=== PATIENT | female | born 1985 | race Caucasian/White ===

== ENCOUNTER 2017-09-22 18:36 | Outpatient (CLI) | payer MEDICAID | END 2017-09-22 23:21 | disposition home or self-care (01) | LOC: OBT 18:36 → L-D 18:39 → OBT 23:21 | DX: O36.8130 Decreased fetal movements, third trimester, not applicable or unspecified (principal); Z3A.34 34 weeks gestation of pregnancy | CPT/HCPCS: 76815; 76817; 76818 ==

== ENCOUNTER 2017-09-24 21:06 | Outpatient (CLI) | payer MEDICAID | END 2017-09-25 11:47 | disposition home or self-care (01) | LOC: OBT 21:06 → L-D 21:10 | DX: O09.293 Supervision of pregnancy with other poor reproductive or obstetric history, third trimester (principal); Z3A.27 27 weeks gestation of pregnancy | CPT/HCPCS: 76818 ==

== ENCOUNTER 2017-12-21 17:37 | Inpatient (IN) | payer MEDICAID ==
[2017-12-21 20:01] LABS: RUPTURE FETAL MEMBRANES POSITIVE (NEGATIVE)
[2017-12-21] MEDS ORDERED: LACTATED RINGER'S 1,000 ML IV (20:13)
[2017-12-21] MEDS ORDERED: BUTORPHANOL 2 MG INJ IV (20:30)
[2017-12-21] MEDS ORDERED: IBUPROFEN 600 MG TAB PO (20:30)
[2017-12-21] MEDS ORDERED: CARBOPROST 250 MCG INJ IM (20:30)
[2017-12-21] MEDS ORDERED: METHYLERGONOVINE 0.2 MG INJ IM (20:30)
[2017-12-21] MEDS ORDERED: OXYTOCIN 30 UNITS/LR 500 ML IV ×2 (20:30)
[2017-12-21] MEDS ORDERED: MISOPROSTOL 200 MCG TAB PR (20:30)
[2017-12-21] MEDS ORDERED: OXYCODONE/ACETAMINOPHEN (5/325) TAB PO (20:30)
[2017-12-21] MEDS ORDERED: LIDOCAINE 1% (MPF) 30 ML INJ INJ (20:30)
[2017-12-21] MEDS: LACTATED RINGER'S 1,000 ML IV* (22:49)
[2017-12-21 22:57] LABS: ADD MAN DIFF? NO
[2017-12-21 23:01] LABS: WHITE BLOOD COUNT 7.9 10^3/ul (4.8-10.8)
[2017-12-21 23:01] LABS: BASOPHILS % 0.3 % (0.0-2.0); EOSINOPHILS # 0.1 10^3/ul (0.0-0.5); EOSINOPHILS % 0.6 % (0.0-7.0); HEMATOCRIT 35.7 % (37.0-47.0); HEMOGLOBIN 12.4 g/dl (12.0-16.0); LYMPHOCYTES # 2.7 10^3/ul (0.8-2.9); LYMPHOCYTES % 33.5 % (15.0-51.0); MEAN CORPUSCULAR HEMOGLOBIN 33.9 pg (29.0-33.0); MEAN CORPUSCULAR HGB CONC 34.7 g/dl (32.0-37.0); MEAN CORPUSCULAR VOLUME 97.5 fl (82.0-101.0); MEAN PLATELET VOLUME 10.3 fl (7.4-10.4); MONOCYTE # 0.5 10^3/ul (0.3-0.9); MONOCYTES % 5.9 % (0.0-11.0); NEUTROPHIL # 4.7 10^3/ul (1.6-7.5); NEUTROPHILS % 58.9 % (39.0-77.0); PLATELET COUNT 258 10^3/UL (140-415); RED BLOOD COUNT 3.66 10^6/ul (4.20-5.40); RED CELL DISTRIBUTION WIDTH 12.5 % (11.5-14.5)
[2017-12-21 23:20] LABS: PARTIAL THROMBOPLASTIN TIME 25.3 Sec (23.0-35.0)
[2017-12-21 23:24] LABS: AMPHETAMINE/METHAMPHETAMINE Negative (NEGATIVE); BARBITURATES Negative (NEGATIVE); BENZODIAZEPINES Negative (NEGATIVE); CANNABINOIDS Positive (NEGATIVE); COCAINE Negative (NEGATIVE); OPIATES Negative (NEGATIVE)
[2017-12-21 23:31] LABS: INR 0.84; PROTIME 11.6 Sec (11.9-14.9); PT RATIO 0.9
[2017-12-21 23:49] LABS: HEPATITIS B SURFACE ANTIGEN NEGATIVE (NEGATIVE)
[2017-12-22] MEDS: AMPICILLIN 2 GM/NS (PMX) 100 ML IV (05:46)
[2017-12-22] MEDS: LACTATED RINGER'S 1,000 ML IV* (05:46)
[2017-12-22] MEDS: OXYTOCIN 30 UNITS/LR 500 ML IV ×4 (05:47→14:27)
[2017-12-22] MEDS ORDERED: CARBOPROST 250 MCG INJ IM (09:30)
[2017-12-22] MEDS ORDERED: MISOPROSTOL 200 MCG TAB PR (09:30)
[2017-12-22] MEDS ORDERED: NACL 0.9% 3 ML SYG IV (09:30)
[2017-12-22] MEDS: AMPICILLIN 1 GM/NS (PMX) 50 ML IV (09:30)
[2017-12-22] MEDS ORDERED: SENNA/DOCUSATE NA (8.6MG/50MG) TAB PO (09:30)
[2017-12-22] MEDS ORDERED: DIBUCAINE 1% 30 GM OINT TOP (09:30)
[2017-12-22] MEDS ORDERED: METHYLERGONOVINE 0.2 MG INJ IM (09:30)
[2017-12-22] MEDS ORDERED: ONDANSETRON 4 MG INJ IV (09:30)
[2017-12-22] MEDS: LANOLIN 7 GM TUBE TOP (11:50)
[2017-12-22] MEDS: BENZOCAINE 20% 56 ML SPRAY TOP (11:50)
[2017-12-22] MEDS: WITCH HAZEL/GLYCERIN PAD PR (11:50)
[2017-12-22] MEDS: IBUPROFEN 600 MG TAB PO ×3 (11:59→23:52)
[2017-12-22 16:22] LABS: RAPID PLASMA REAGIN NONREACTIVE (NR)
[2017-12-22] MEDS: SENNA/DOCUSATE NA (8.6MG/50MG) TAB PO (20:37)
[2017-12-22] MEDS: MAGNESIUM HYDROXIDE 30ML CUP PO (20:37)
[2017-12-23] MEDS: IBUPROFEN 600 MG TAB PO ×4 (05:41→23:55)
[2017-12-23 07:49] LABS: ADD MAN DIFF? NO
[2017-12-23 07:50] LABS: BASOPHILS % 0.3 % (0.0-2.0); EOSINOPHILS # 0.1 10^3/ul (0.0-0.5); EOSINOPHILS % 0.5 % (0.0-7.0); HEMATOCRIT 31.9 % (37.0-47.0); LYMPHOCYTES # 3.1 10^3/ul (0.8-2.9); LYMPHOCYTES % 33.6 % (15.0-51.0); MEAN CORPUSCULAR HEMOGLOBIN 34.1 pg (29.0-33.0); MEAN CORPUSCULAR HGB CONC 34.5 g/dl (32.0-37.0); MEAN CORPUSCULAR VOLUME 98.8 fl (82.0-101.0); MEAN PLATELET VOLUME 10.5 fl (7.4-10.4); MONOCYTE # 0.6 10^3/ul (0.3-0.9); MONOCYTES % 6.9 % (0.0-11.0); NEUTROPHIL # 5.3 10^3/ul (1.6-7.5); NEUTROPHILS % 57.9 % (39.0-77.0); PLATELET COUNT 243 10^3/UL (140-415); RED BLOOD COUNT 3.23 10^6/ul (4.20-5.40); RED CELL DISTRIBUTION WIDTH 12.5 % (11.5-14.5)
[2017-12-23 07:50] LABS: WHITE BLOOD COUNT 9.2 10^3/ul (4.8-10.8)
[2017-12-23] MEDS: SENNA/DOCUSATE NA (8.6MG/50MG) TAB PO ×2 (08:53→21:35)
[2017-12-23] MEDS: MAGNESIUM HYDROXIDE 30ML CUP PO ×2 (08:53→21:35)
[2017-12-24] MEDS: IBUPROFEN 600 MG TAB PO ×2 (06:07→12:35)
[2017-12-24] MEDS: SENNA/DOCUSATE NA (8.6MG/50MG) TAB PO (09:42)
[2017-12-24] MEDS: MAGNESIUM HYDROXIDE 30ML CUP PO (09:42)
== END 2017-12-24 15:40 | disposition home or self-care (01) | DRG 807 ==
LOC: PP1 12-22 10:30 → OBT 17:37 → L-D 17:38 → OBT 20:00 → L-D 20:00
PROVIDERS: Obstetrics & Gynecology
PROC: 10E0XZZ Delivery of Products of Conception, External Approach (ICD-10-PCS; principal; 2017-12-22)
PROC: 0HQ9XZZ Repair Perineum Skin, External Approach (ICD-10-PCS; 2017-12-22)
DX: O69.2XX0 Labor and delivery complicated by other cord entanglement, with compression, not applicable or unspecified (principal); Z37.0 Single live birth; O77.0 Labor and delivery complicated by meconium in amniotic fluid; O70.0 First degree perineal laceration during delivery; Z3A.40 40 weeks gestation of pregnancy; Z23 Encounter for immunization
CPT/HCPCS: 76815; 80307; 84112; 85025; 85610; 85730; 86592; 86850; 86900; 86901; 87340; 90686; 99464